=== PATIENT | male | born 1960 | race African-American/Black ===

== ENCOUNTER 2017-12-07 22:59 | Emergency (ER) | payer MEDICARE, MEDICAID ==
--- NOTE | 2017-12-08 00:40 | ER Document Report ---
ED Medical Screen (RME) - General Chief Complaint: Fever Stated Complaint: HEADACHE/FEVER Time Seen by Provider: 12/08/17 00:38 Mode of Arrival: Wheelchair Information source: Patient, Parent Notes: 57-year-old male presents to ED for complaint of cough cold congestion and headache. Patient does not answer many of the questions mother answers the questions. Mother states she has been having a cold and cough and sinus congestion since patient states that the headache started tonight when he got ready to go to bed. Pulse is 100 pulse ox is 97 temp 97.4. He states that the head ache is in the front of his head. Mother states she had a cough and cold to but she got over her cold but he did not. I have greeted and performed a rapid initial assessment of this patient. A comprehensive ED assessment and evaluation of the patient, analysis of test results and completion of medical decision making process will be conducted by an additional ED providers. TRAVEL OUTSIDE OF THE [place] IN LAST 30 DAYS: No - Related Data Allergies/Adverse Reactions: No Known Allergies Allergy (Unverified 07/18/17 17:20) Past Medical History Renal/ Medical History: Denies: Hx Peritoneal Dialysis Physical Exam - Vital signs Vitals: Temp Pulse Resp BP Pulse Ox 97.4 F 110 H 18 144/90 H 97 12/07/17 23:04 12/07/17 23:04 12/07/17 23:04 12/07/17 23:04 12/07/17 23:04 Course - Vital Signs Vital signs: Temp Pulse Resp BP Pulse Ox 97.4 F 110 H 18 144/90 H 97 12/07/17 23:04 12/07/17 23:04 12/07/17 23:04 12/07/17 23:04 12/07/17 23:04
[2017-12-08] MEDS ORDERED: IBUPROFEN 600 MG TABLET PO ONE (01:09)
[2017-12-08] MEDS ORDERED: ACETAMINOPHEN 325 MG TABLET PO ONE (01:09)
--- NOTE | 2017-12-08 01:32 | RADIOLOGY REPORT (SQ) ---
EXAM DESCRIPTION: CHEST SINGLE VIEW CLINICAL HISTORY: 57 years Male, cough COMPARISON: None. NUMBER OF VIEWS/TECHNIQUE: 1/AP LIMITATIONS: None. FINDINGS: Normal lung volume, clear parenchyma, normal cardiac silhouette, and intact bony thorax. IMPRESSION: No acute cardiopulmonary findings.
[2017-12-08] MEDS ORDERED: BENZONATATE 100 MG CAPSULE PO ONE (02:06)
--- NOTE | 2017-12-08 02:08 | ER Document Report ---
ED General - General Chief Complaint: Fever Stated Complaint: HEADACHE/FEVER Time Seen by Provider: 12/08/17 00:38 Mode of Arrival: Wheelchair Cannot obtain history due to: Mentally challenged Notes: Patient is a 57-year-old male with a past history of developmental delay, no chronic medical problems who presents with 3-4 days of cough, nasal congestion and several hours of a bifrontal headache. Patient describes mild, throbbing, constant bifrontal headache. He has difficulty characterized the headache but mother reports that he has been complaining of the headache for most of the day on and off. They have not given him to try to treat the headache. Nothing seems to improve or worsen his symptoms. He does have a history of similar headaches in the past. Family has not noted any change in behavior. He has not seen his primary care doctor regarding today's concerns. The mother reports that she has had the same symptoms recently got over them yesterday and the patient continues to be sick. TRAVEL OUTSIDE OF THE [place] IN LAST 30 DAYS: No - Related Data Allergies/Adverse Reactions: No Known Allergies Allergy (Unverified 07/18/17 17:20) Past Medical History - General Information source: Patient, Parent - Social History Smoking Status: Never Smoker Frequency of alcohol use: None Drug Abuse: None Lives with: Family Family History: Reviewed & Not Pertinent Patient has suicidal ideation: No Patient has homicidal ideation: No - Past Medical History Cardiac Medical History: Reports: Hx Hypercholesterolemia, Hx Hypertension Renal/ Medical History: Denies: Hx Peritoneal Dialysis Review of Systems - Review of Systems Notes: Constitutional: Negative for fever. HENT: Negative for sore throat. Eyes: Negative for visual changes. Cardiovascular: Negative for chest pain. Respiratory: Positive for cough Gastrointestinal: Negative for abdominal pain, vomiting or diarrhea. Genitourinary: Negative for dysuria. Musculoskeletal: Negative for back pain. Skin: Negative for rash. Neurological: Positive for headache 10 point ROS negative except as marked above and in HPI. Physical Exam - Vital signs Vitals: Temp Pulse Resp BP Pulse Ox 97.4 F 110 H 18 144/90 H 97 12/07/17 23:04 12/07/17 23:04 12/07/17 23:04 12/07/17 23:04 12/07/17 23:04 Interpretation: Hypertensive, Tachycardic Notes: PHYSICAL EXAMINATION: GENERAL: Well-appearing, well-nourished and in no acute distress. HEAD: Atraumatic, normocephalic. EYES: Pupils equal round and reactive to light, extraocular movements intact, sclera anicteric, conjunctiva are normal. ENT: nares patent, oropharynx clear without exudates. Moist mucous membranes. NECK: Normal range of motion, supple without lymphadenopathy LUNGS: Breath sounds clear to auscultation bilaterally and equal. No wheezes rales or rhonchi. HEART: Regular rate and rhythm without murmurs ABDOMEN: Soft, nontender, normoactive bowel sounds. No guarding, no rebound. No masses appreciated. EXTREMITIES: Normal range of motion, no pitting or edema. No cyanosis. NEUROLOGICAL: Face symmetric. Tongue protrudes midline. Extraocular motions intact. Pupils are 2 mm and equally reactive. Normal speech, normal gait. 5 out of 5 strength in both the distal and proximal upper and lower extremities bilaterally. Sensation is grossly intact throughout. Finger to nose testing normal. Pronator drift normal. PSYCH: Persistent moderate cognitive impairment. Pleasant on contact. SKIN: Warm, Dry, normal turgor, no rashes or lesions noted. Course - Re-evaluation Re-evalutation: 12/08/17 02:05 Presentation is most consistent with a viral upper respiratory infection. Patient is overall well appearance, vitals within normal limits, well-hydrated. Patient denies neck pain, and has no evidence of meningismus on examination. Lungs are clear bilaterally. No evidence of respiratory distress. Based on clinical exam and history, I do not suspect an acute pneumonia, meningitis, strep pharyngitis, or an acute encephalitis. Patient did complain of some mild headache but notes that it is present when he coughs vigorously. Headache was not maximal onset, he has no focal neurologic deficits, nothing to suggest more worrisome pathology. Patient has had resolution of his headache with ibuprofen. Chest x-ray is clear without any evidence of an acute pneumonia. At this time will discharge with return precautions and follow-up recommendations. Verbal discharge instructions given a the bedside and opportunity for questions given. Medication warnings reviewed. Patient is in agreement with this plan and has verbalized understanding of return precautions and the need for primary care follow-up in the next 24-72 hours. - Vital Signs Vital signs: Temp Pulse Resp BP Pulse Ox 98.2 F 82 20 136/78 H 99 12/08/17 02:25 12/08/17 02:25 12/08/17 02:25 12/08/17 02:25 12/08/17 02:25 - Diagnostic Test Radiology reviewed: Image reviewed, Reports reviewed Radiology results interpreted by me: 12/08/17 02:06 Chest x-ray: No acute infiltrate or pneumothorax Discharge - Discharge Clinical Impression: Viral upper respiratory infection Headache Qualifiers: Headache type: unspecified Headache chronicity pattern: acute headache Intractability: not intractable Qualified Code(s): R51 - Headache Condition: Good Disposition: HOME, SELF-CARE Additional Instructions: Your symptoms are most likely due to a viral infection it should resolve over the next 7-14 days. You should take [id number] guanfacine per bottle instructions to help thin the mucus. For nasal congestion: I would recommend that you get [id number] oxymetazoline also known is afrin. Use only per bottle instructions and be sure to never use this for more than 3 days if you can develop severe rebound congestion. You may also use tylenol or ibuprofen as needed for aches and thorat discomfort. Please be sure to drink plenty of fluids and get rest. Return to the emergency department he began having difficulty breathing, chest pain, persistent vomiting, or any other symptoms that are concerning to you. Prescriptions: Benzonatate [Tessalon Perles 100 mg Capsule] 100 mg PO Q8HP PRN #40 capsule PRN Reason: Referrals: GOKUL CONTRERAS MD [Primary Care Provider] - Follow up as needed
[2017-12-08 02:27] VITALS: BP 136/78
== END 2017-12-08 02:27 | disposition home or self-care (01) ==
LOC: ER 22:59
DX: J06.9 Acute upper respiratory infection, unspecified (principal); B97.89 Other viral agents as the cause of diseases classified elsewhere; R51 Headache; R50.9 Fever, unspecified; R62.50 Unspecified lack of expected normal physiological development in childhood; R05 Cough; R09.81 Nasal congestion; I10 Essential (primary) hypertension
CPT/HCPCS: 99284; 71045; A9270 ×3